=== PATIENT | female | born 2000 | race Hispanic/Latino ===

== ENCOUNTER 2023-10-29 10:08 | Emergency (ER) | payer MEDICAID, OTHER ==
[~2023-10-29] VITALS: Ht 157.5 cm; Wt 136.1 kg
[2023-10-29 10:13] VITALS: BP 160/98; PULSE 100; RESP 19; O2SAT 99
[2023-10-29 11:47] LABS: HIV 1&2 ANTIBODY Non-Reactive (Negative); HIV-1 p24 Antigen Non-Reactive (Negative)
[2023-10-30 16:30] LABS: HEPATITIS B CORE AB TOTAL Non-Reactive (Nonreactive); HEPATITIS B SURFACE ANTIBODY Negative (Reactive); HEPATITIS C ANTIBODY Non-Reactive (Nonreactive)
== END 2023-10-29 12:36 | disposition home or self-care (01) ==
LOC: EDH 10:08
DX: S61.231A Puncture wound without foreign body of left index finger without damage to nail, initial encounter (principal); I10 Essential (primary) hypertension; E11.9 Type 2 diabetes mellitus without complications; W46.1XXA Contact with contaminated hypodermic needle, initial encounter; Y93.89 Activity, other specified; Y92.89 Other specified places as the place of occurrence of the external cause; Y99.0 Civilian activity done for income or pay
CPT/HCPCS: 36415; 86701; 86704; 86706; 86803; 87390

== ENCOUNTER 2024-01-22 02:38 | Emergency (ER) | payer OTHER ==
[~2024-01-22] VITALS: Ht 157.5 cm; Wt 145.1 kg
[2024-01-22 03:05] LABS: RAPID GROUP A STREP negative (NEGATIVE)
[2024-01-22 03:10] LABS: SARS-CoV-2, RNA, NAAT NEGATIVE SARS CoV-2 (NEGATIVE)
[2024-01-22 03:28] LABS: ADD UA MICROSCOPIC YES; APPEARANCE,URINE CLEAR (CLEAR); BILIRUBIN,URINE NEGATIVE (NEGATIVE); COLOR,URINE LIGHT-YELLOW (YELLOW); GLUCOSE, URINE (UA) 500 mg/dL (NEGATIVE); KETONES,URINE NEGATIVE (NEGATIVE); LEUKOCYTE ESTERASE ,URINE NEGATIVE Leu/uL (NEGATIVE); NITRATE,URINE NEGATIVE (NEGATIVE); OCCULT BLOOD,URINE SMALL (NEGATIVE); PROTEIN,URINE 20 mg/dL (NEGATIVE); UROBILINOGEN,URINE 0.2 mg/dL (0.2-1.0)
[2024-01-22 03:30] LABS: HCG,QUALITATIVE URINE NEGATIVE (NEGATIVE)
[2024-01-22 03:31] LABS: BACTERIA,URINE FEW /HPF (None Seen); MUCUS,URINE FEW LPF (None Seen); RBC,URINE 0-1 /HPF (0-1); SQUAMOUS EPITHELIAL CELL,UR FEW /HPF (0-2)
[2024-01-22 03:39] LABS: INFLUENZA TYPE A Negative For Type A (NEGATIVE); INFLUENZA TYPE B Negative For Type B (NEGATIVE)
[2024-01-22 03:57] VITALS: BP 139/69; PULSE 93; RESP 20; O2SAT 98
[2024-01-22] MEDS ORDERED: AMOX500C2 PO (04:44)
[2024-01-22] MEDS ORDERED: GUAI1TBM19 PO (04:44)
== END 2024-01-22 05:00 | disposition home or self-care (01) ==
LOC: EDH 02:38
DX: J06.9 Acute upper respiratory infection, unspecified (principal); I10 Essential (primary) hypertension; E11.9 Type 2 diabetes mellitus without complications; Z20.822 Contact with and (suspected) exposure to COVID-19; Z90.89 Acquired absence of other organs; Z98.890 Other specified postprocedural states
CPT/HCPCS: 71045; 81001; 81025; 87635; 87804; 87880

== ENCOUNTER 2024-05-06 23:12 | Emergency (ER) | payer OTHER ==
[~2024-05-06] VITALS: Ht 157.5 cm; Wt 154.2 kg
[~2024-05-06 23:12] MED LIST: AMOX500C2 PO; GUAI1TBM19 PO
[2024-05-06 23:41] LABS: APPEARANCE,URINE CLEAR (CLEAR); BILIRUBIN,URINE NEGATIVE (NEGATIVE); GLUCOSE, URINE (UA) 300 mg/dL (NEGATIVE); KETONES,URINE NEGATIVE (NEGATIVE); LEUKOCYTE ESTERASE ,URINE NEGATIVE Leu/uL (NEGATIVE); NITRATE,URINE NEGATIVE (NEGATIVE); OCCULT BLOOD,URINE NEGATIVE (NEGATIVE); PROTEIN,URINE NEGATIVE (NEGATIVE); UROBILINOGEN,URINE 0.2 mg/dL (0.2-1.0)
[2024-05-06 23:48] LABS: HCG,QUALITATIVE URINE NEGATIVE (NEGATIVE); INFLUENZA TYPE A Negative For Type A (NEGATIVE); INFLUENZA TYPE B Negative For Type B (NEGATIVE)
[2024-05-06 23:50] LABS: COLOR,URINE Light-Yellow (YELLOW)
[2024-05-06 23:51] LABS: ADD UA MICROSCOPIC YES; SQUAMOUS EPITHELIAL CELL,UR RARE /HPF (0-2); WBC,URINE 0-1 /HPF (0-1)
[2024-05-06 23:59] LABS: CREATININE 0.9 mg/dL (0.5-1.0); POTASSIUM 3.7 mmol/L (3.5-5.1)
[2024-05-07 00:08] LABS: BASOPHILS # (AUTO) 0.03 K/uL (0.00-0.20); BASOPHILS % (AUTO) 0.2 % (0.0-5.0); EOSINOPHILS # (AUTO) 0.44 K/uL (0.00-0.70); EOSINOPHILS % (AUTO) 2.4 % (0.0-8.0); HEMATOCRIT 38.3 % (36-48); IMMATURE GRANULOCYTE ABSOLUTE 0.08 K/uL (0-1); LYMPHOCYTES # (AUTO) 6.9 K/uL (1.0-4.8); LYMPHOCYTES % (AUTO) 38.3 % (21.0-51.0); MEAN CORPUSCULAR HEMOGLOBIN 29.8 pg (27.0-33.0); MEAN CORPUSCULAR HGB CONC 33.7 g/dL (32.0-36.0); MEAN CORPUSCULAR VOLUME 88.5 fL (79-99); MONOCYTES # (AUTO) 0.8 K/uL (0.1-1.0); MONOCYTES % (AUTO) 4.4 % (3.0-13.0); NEUTROPHILS # (AUTO) 9.8 K/uL (1.8-7.7); NEUTROPHILS % (AUTO) 54.3 % (40.0-77.0); PLATELET COUNT (AUTO) 331 K/uL (130-400); RED BLOOD CELL COUNT(AUTO) 4.33 MIL/uL (4.00-5.50); RED CELL DISTRIBUTION WIDTH 13.2 % (11.0-15.5); WHITE BLOOD COUNT (AUTO) 18.1 K/uL (4.8-10.8)
[2024-05-07 00:13] LABS: B-TYPE NATRIURETIC PEPTIDE 25 pg/mL (0-100)
[2024-05-07 00:15] LABS: SARS-CoV-2, RNA, NAAT NEGATIVE SARS CoV-2 (NEGATIVE)
[2024-05-07] MEDS ORDERED: AMOX875T2 PO (00:39)
[2024-05-07] MEDS: ONDANSETRON 4MG INJ IVP ONE (00:55)
[2024-05-07] MEDS: FAMOTIDINE 20MG VIAL IV ONE (00:55)
[2024-05-07 01:09] VITALS: BP 158/81; PULSE 92; RESP 18; O2SAT 100
== END 2024-05-07 01:10 | disposition home or self-care (01) ==
LOC: EDH 23:12
DX: K21.9 Gastro-esophageal reflux disease without esophagitis (principal); J02.9 Acute pharyngitis, unspecified; I10 Essential (primary) hypertension; E11.9 Type 2 diabetes mellitus without complications; Z20.822 Contact with and (suspected) exposure to COVID-19; Z79.899 Other long term (current) drug therapy; Z90.89 Acquired absence of other organs; Z98.890 Other specified postprocedural states
CPT/HCPCS: 99285; 71045; 87635; 82550; 84484 ×2; 80048; 83880; 85025; 87804 ×2; 81001; 81025; 36415 ×2; 93005; 96374; 96375; J3490; J2405

== ENCOUNTER 2024-06-14 17:54 | Emergency (ER) | payer OTHER ==
[~2024-06-14] VITALS: Ht 157.5 cm; Wt 149.7 kg
[~2024-06-14 17:54] MED LIST changes: +AMOX875T2 PO
[2024-06-14] MEDS: METHOCARBAMOL 500 MG TABLET PO ONE (21:27)
[2024-06-14 21:28] VITALS: BP 142/74; PULSE 88; RESP 20; O2SAT 98
== END 2024-06-14 21:53 | disposition home or self-care (01) ==
LOC: EDH 17:54
DX: M54.50 Low back pain, unspecified (principal); M25.512 Pain in left shoulder; M79.641 Pain in right hand; M25.562 Pain in left knee; I10 Essential (primary) hypertension; E11.9 Type 2 diabetes mellitus without complications; Z79.899 Other long term (current) drug therapy; Z90.89 Acquired absence of other organs; Z98.890 Other specified postprocedural states
CPT/HCPCS: 72110; 73030; 73130; 73562; 81025

== ENCOUNTER → 2024-08-13 | Outpatient (CLI) | payer OTHER ==
[2024-08-13 12:58] LABS: BASOPHILS # (AUTO) 0.04 K/uL (0.00-0.20); BASOPHILS % (AUTO) 0.3 % (0.0-5.0); EOSINOPHILS # (AUTO) 0.44 K/uL (0.00-0.70); EOSINOPHILS % (AUTO) 2.8 % (0.0-8.0); HEMATOCRIT 39.5 % (36-48); IMMATURE GRANULOCYTE ABSOLUTE 0.11 K/uL (0-1); LYMPHOCYTES # (AUTO) 5.9 K/uL (1.0-4.8); MEAN CORPUSCULAR HEMOGLOBIN 29.1 pg (27.0-33.0); MEAN CORPUSCULAR HGB CONC 32.9 g/dL (32.0-36.0); MEAN CORPUSCULAR VOLUME 88.6 fL (79-99); MONOCYTES # (AUTO) 0.7 K/uL (0.1-1.0); MONOCYTES % (AUTO) 4.2 % (3.0-13.0); NEUTROPHILS # (AUTO) 8.8 K/uL (1.8-7.7); PLATELET COUNT (AUTO) 360 K/uL (130-400); RED BLOOD CELL COUNT(AUTO) 4.46 MIL/uL (4.00-5.50); RED CELL DISTRIBUTION WIDTH 13.4 % (11.0-15.5); WHITE BLOOD COUNT (AUTO) 15.9 K/uL (4.8-10.8)
[2024-08-13 13:12] LABS: EOSINOPHILS % (MANUAL) 4 % (1-6); LYMPHOCYTES % (MANUAL) 40 % (22-44); MAN.DIFF COMMENT-IMPRESSION MANUAL DIFFERENTIAL; MONOCYTES % (MANUAL) 1 % (2-9); PLATELET MORPHOLOGY COMMENT ADEQUATE; REACTIVE LYMPHOCYTES 3 % (0-0); SEGMENTED NEUTROPHILS % 52 % (40-70); TOTAL CELLS COUNTED 100
[2024-08-13 13:14] LABS: THYROID STIMULATING HORMONE 2.86 uIU/mL (0.36-3.74)
[2024-08-14 08:17] LABS: INSULIN, RANDOM OR FASTING 86.4 uIU/mL (2.6-24.9)
== END | disposition home or self-care (01) ==
LOC: LAB 12:20
PROVIDERS: ATTEND Obstetrics & Gynecology
DX: N92.6 Irregular menstruation, unspecified (principal)
CPT/HCPCS: 36415; 82626; 82947; 83001; 83002; 83525; 84146; 84402; 84403; 84443; 85025

== ENCOUNTER 2025-01-22 11:23 | Emergency (ER) | payer OTHER ==
[~2025-01-22] VITALS: Ht 157.5 cm; Wt 145.1 kg
[~2025-01-22 11:23] MED LIST changes: +ALBU18HF7 IH; +OSEL75 PO
--- NOTE | 2025-01-22 11:33 | ERN ---
General Chief Complaint: Needle Stick Stated Complaint: NEEDLE STICK EXPOSURE Time Seen by MD: 11:25 Source: patient History of Present Illness Initial Comments PATIENT IS A 24-YEAR-OLD FEMALE COMING IN TO BE EVALUATED FOR LEFT HAND 2ND DIGIT HE WAS TAKING INJURY. PATIENT STATES WHILE AT WORK AT 10:30 A.M. SHE GOT BY AN NEEDLE IN HIS HERE FOR FURTHER EVALUATION. Allergies: Coded Allergies: No Known Drug Allergies (Unverified Allergy, Unknown, 10/29/23) Home Meds Active Scripts Albuterol Sulfate (Ventolin Hfa) 90 Mcg Hfa.aer.ad, 2 PUFF IH [id number] PRN for wheezing for 7 Days, #18 GM 0 Refills Prov:TY CARLTON MD 12/10/24 Oseltamivir Phosphate (Tamiflu) 75 Mg Cap, 1 CAP PO BID for 5 Days, #10 CAP 0 Refills Prov:TY CARLTON MD 12/10/24 Amoxicillin (Amoxicillin) 875 Mg Tablet, 875 MG PO BID for 10 Days, #20 TAB Prov:DANIEL PETERSON MD 05/07/24 Guaifenesin/Dextromethorphan (Mucinex Dm ER 1,200-60 mg Tab) 1,200 Mg-60 Mg Tbmp.12hr, 1 EACH PO BID, #20 TAB Prov:PETER CORONEL MD 01/22/24 Amoxicillin (Amoxicillin) 500 Mg Capsule, 500 MG PO TID for 10 Days, #30 CAP 0 Refills Prov:PETER CORONEL MD 01/22/24 Past Medical History Past Medical History: Asthma, Diabetes-Type II, Hypertension Past Surgical History: Tonsillectomy Surgical History Other: ADENOIDS Family History Family History: HTN Social History Social History: Negative, Lives with family Female( History) : 0 ROS Dictation CONSTITUTIONAL: NO CHILLS, NO FEVER, NO WEAKNESS, NO DIAPHORESIS, NO MALAISE. HEAD/FACE: NO SIGNS OF TRAUMA. EENT: NO EYE PAIN, NO BLURRED VISION, NO TEARING, NO DOUBLE VISION, NO EAR PAIN, NO EAR DISCHARGE, NO NOSE PAIN, NO NASAL CONGESTION, NO THROAT PAIN, NO THROAT SWELLING, NO MOUTH PAIN. RESPIRATORY: NO COUGH, NO ORTHOPNEA, NO SOB, NO STRIDOR, NO WHEEZING. CARDIOVASCULAR: NO CHEST PAIN, NO EDEMA, NO PALPITATIONS, NO SYNCOPE. GASTROINTESTINAL/ABDOMINAL: NO ABDOMINAL PAIN, NO CONSTIPATION, NO DIARRHEA, NO NAUSEA, NO VOMITING. GENITOURINARY: NO ABNORMAL DISCHARGE, NO DYSURIA, NO FREQUENT URINATION, NO HEMATURIA. NO COMPLAINTS OF PAIN IN THE GENITALS. MUSCULOSKELETAL: NO BACK PAIN, NO GOUT, NO JOINT PAIN, NO JOINT SWELLING, NO MUSCLE PAIN, NO MUSCLE STIFFNESS, NO NECK PAIN. INTEGUMENTARY: NO CHANGE IN COLOR, NO CHANGE IN HAIR/NAILS, NO DRYNESS, NO LESION, NO LUMPS, NO RASH. NEUROLOGICAL/PSYCH: NO ANXIETY, NOT DEPRESSED, NO EMOTIONAL PROBLEM, NO HEADACHE, NO NUMBNESS, NO PRE-EXISTING DEFICIT, NO HISTORY OF SEIZURES, NO T REMORS, NO WEAKNESS. HEMATOLOGIC/LYMPHATIC: NOT ANEMIC, NO HISTORY OF BLOOD CLOTS, NO APPARENT BLEEDING, NO BRUISING, GLANDS NOT SWOLLEN. ALL SYSTEMS NEGATIVE, EXCEPT NOTED. Physical Exam Physical Exam Dictation VITAL SIGNS: REVIEWED. GENERAL APPEARANCE: ALERT, ORIENTED X3, NO ACUTE DISTRESS, OBESE. HEAD AND FACE: NON-TRAUMATIC. EYES: PERRL, PINK CONJUNCTIVAS, EYELID NO TRAUMA, ANTERIOR CHAMBER CLEAR. EARS: PINNAS INTACT AND NO SIGNS OF TRAUMA OR ERYTHEMA. EAR CANALS CLEAR AND NO DISCHARGE. TMS NO ERYTHEMA. NOSE: NO DISCHARGE, NO BLEEDING. OROPHARYNX: MOUTH NORMAL, TEETH NO CARIES, TONGUE PINK. PHARYNX CLEAR, NO ERYTHEMA. TONSILS NO EXUDATES, NO ABSCESSES NOTED. MUCOUS MEMBRANE MOIST. NECK: SUPPLE, NON-TENDER, NO THYROMEGALY, NO MASSES, NO JVD, NO BRUITS. BREAST: DEFERRED. CHEST: NO TENDERNESS, NO CREPITUS, NO PARADOXICAL MOVEMENT, NO RETRACTIONS. LUNGS: CLEAR, WELL-VENTILATED, SYMMETRIC, NO RALES, NO WHEEZING, NO RHONCHI, NO STRIDOR, GOOD BREATH SOUNDS BILATERALLY. HEART: REGULAR RATE, REGULAR RHYTHM, NO MURMUR, NO GALLOPS. VASCULAR: NO PERIPHERAL EDEMA. ABDOMEN: SOFT, POSITIVE BOWEL SOUNDS, NONDISTENDED, NO GUARDING, NONTENDER, NO REBOUND, NO MASSES NO HEPATOMEGALY, NO SPLENOMEGALY, NO KENNEDY'S SIGN, NO HERNIAS. RECTAL: DEFERRED. GENITAL: DEFERRED. NEUROLOGICAL: NORMAL SPEECH, GROSS MOTOR FUNCTION INTACT, GROSS SENSORY FUNCTION INTACT. MUSCULOSKELETAL: NECK NONTENDER, FULL RANGE OF MOTION, BACK NONTENDER, FULL RANGE OF MOTION. EXTREMITIES: NONTENDER, FULL RANGE OF MOTION. SKIN: COLOR PINK, DRY, NO TURGOR, NO RASH, NO LACERATIONS, NO ABRASIONS, NO CONTUSIONS. LYMPHATICS: DEFERRED. Results Laboratory and Microbiology Lab and Micro Result Laboratory Tests Test 01/22/25 10:43 HIV (1&2) Antibody Non-Reactive (Negative) HIV P24 Antigen, Qualitative Non-Reactive (Negative) Labs Reviewed?: Yes MDM MDM: DIFFERENTIAL DIAGNOSIS: NEEDLE STICK INJURY, PATIENT COMES IN TO BE EVALUATED FOR A NEEDLESTICK INJURY. LABORATORY WORKUP NEGATIVE SO FAR. PATIENT WILL BE DISCHARGED IN STABLE CONDITION WE WILL BE ADVISING HER IF ANY CHANGES ON LABORATORY WORKUP. ED Course Orders Procedure Category Date Status Time Hiv 1-2 W/Reflex To LAB 01/22/25 Complete Confirm 10:43 Hepatitis B Core Total LAB 01/22/25 In Process 10:43 Hepatitis B Surface LAB 01/22/25 In Process Antibody 10:43 Hepatitis C Ab LAB 01/22/25 In Process W/Reflex To Pcr 10:43 Vital Signs Date Time Temp Pulse Resp B/P (MAP) Pulse Ox O2 Delivery O2 Flow Rate FiO2 01/22/25 11:45 98.2 103 18 141/83 97 Room Air DX & DISP Disposition: Discharge Departure Impression: Primary Impression: Needlestick injury of finger of left hand Condition: Stable Additional Instructions: FOLLOW-UP WITH PRIMARY CARE PROVIDER IN 1 TO 2 DAYS. TAKE MEDICATIONS DIRECTED HERE IN THE EMERGENCY ROOM. OKAY TO CONTINUE HOME MEDICATIONS UNLESS OTHERWISE DISCUSSED DURING YOUR VISIT IN THE EMERGENCY ROOM TODAY. RETURN TO YOUR NEAREST EMERGENCY ROOM IF SYMPTOMS WORSEN OR IF THERE IS NO IMPROVEMENT. CALL 911 IF YOU NEED IMMEDIATE ASSISTANCE. TAKE TYLENOL [id number] NEEDED AND IF NO CONTRAINDICATIONS ARE PRESENT. INCREASE ORAL HYDRATION. A WOUND CULTURE OR URINE CULTURE WAS ORDERED HERE IN THE EMERGENCY ROOM DEPARTMENT PLEASE FOLLOW-UP WITH PRIMARY CARE PROVIDER AND ADVISE THEM TO GET REPEAT PORTS FROM OUR FACILITY. IF YOU HAD ANY DOMINIQUE WRAP/SPLINTS THAT WERE APPLIED HERE, PLEASE DO NOT REMOVE THEM UNTIL YOU SEE YOUR PRIMARY CARE OR SPECIALTY. REFERRALS: Referrals: DEON ROSENTHAL MD (PCP) Time of Disposition: 13:42 DANA VERDIN MD Jan 22, 2025 11:33
[2025-01-22 13:32] LABS: HIV 1&2 ANTIBODY Non-Reactive (Negative); HIV-1 p24 Antigen Non-Reactive (Negative)
[2025-01-22 13:53] VITALS: BP 131/79; PULSE 95; RESP 18; TEMP 98.2; O2SAT 97
== END 2025-01-22 13:54 | disposition home or self-care (01) ==
LOC: EDH 11:23
DX: S61.231A Puncture wound without foreign body of left index finger without damage to nail, initial encounter (principal); E11.9 Type 2 diabetes mellitus without complications; I10 Essential (primary) hypertension; J45.909 Unspecified asthma, uncomplicated; Z79.899 Other long term (current) drug therapy; Z77.21 Contact with and (suspected) exposure to potentially hazardous body fluids; Z90.89 Acquired absence of other organs; Z98.890 Other specified postprocedural states; W46.0XXA Contact with hypodermic needle, initial encounter; Y93.89 Activity, other specified; Y92.89 Other specified places as the place of occurrence of the external cause; Y99.0 Civilian activity done for income or pay
CPT/HCPCS: 36415; 86701; 86704; 86706; 86803; 87390; 99283